=== PATIENT | female | born 2000 | race Caucasian/White ===

== ENCOUNTER 2024-08-16 17:43 | Emergency (ER) | payer MEDICARE, SELFPAY ==
[2024-08-16 18:02] VITALS: BP 111/60
[2024-08-16] MEDS: BENADRYL 25 MG PO (18:39)
[2024-08-16] MEDS: DELTASONE 50 MG PO (18:39)
[2024-08-16] MEDS: ADRENALIN 0.3 MG IM (18:40)
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
[2024-08-16 19:31] VITALS: BP 105/54
== END 2024-08-16 19:33 | disposition home or self-care (01) ==
LOC: EMR 17:43
PROVIDERS: EMERGENCY PHYSICIAN Emergency Medicine
DX: L50.9 Urticaria, unspecified (principal); L29.9 Pruritus, unspecified; E84.9 Cystic fibrosis, unspecified; G89.4 Chronic pain syndrome; F11.90 Opioid use, unspecified, uncomplicated; Z88.1 Allergy status to other antibiotic agents; Z91.040 Latex allergy status; Z88.8 Allergy status to other drugs, medicaments and biological substances; Z91.048 Other nonmedicinal substance allergy status
CPT/HCPCS: 99284; 96372

== ENCOUNTER 2024-11-23 12:31 | Emergency (ER) | payer MEDICARE, SELFPAY ==
[2024-11-23 12:36] VITALS: BP 105/64
--- NOTE | 2024-11-23 13:10 | EDRN ---
Troy Odell PA in room w/ pt.
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
[2024-11-23 13:30] VITALS: BP 114/54
[2024-11-23 14:00] LABS: COVID-19 Antigen Negative (Negative)
[2024-11-23 14:30] LABS: % Basophils 0.4 % (0-2); % Eosinophils 1.9 % (0-6); % Immature Granulocytes 0.2 % (0-0.5); % Lymphocytes 26.2 % (20.5-51.1); % Monocytes 11.7 % (1.7-9.3); % Neutrophils 59.6 % (42.2-75.2); Absolute Eosinophils 0.1 10^3/uL (0-0.7); Absolute Lymphocytes 1.2 10^3/uL (1.2-3.4); Absolute Monocytes 0.6 10^3/uL (0.1-0.6); Absolute Neutrophils 2.8 10^3/uL (1.4-6.5); Hematocrit 35.9 % (37.0-47.0); Hemoglobin 12.5 g/dL (12.0-16.0); Mean Corp Hgb Conc. 34.8 g/dL (33.0-37.0); Mean Corpuscular Hgb 31.2 pg (27.0-31.0); Mean Corpuscular Volume 89.5 fL (81.0-99.0); Mean Platelet Volume 9.4 fL (7.4-10.4); Nucleated Red Blood Cells % 0 %; Platelet Count 198 10^3/uL (130-400); Red Blood Cell Count 4.01 10^6/uL (4.20-5.40); Red Cell Dist. Width 12.2 % (11.5-14.5); White Blood Cell Count 4.7 10^3/uL (4.8-10.8)
[2024-11-23 14:40] LABS: Blood Urea Nitrogen 16 mg/dl (7-17); Calcium 9.6 mg/dl (8.4-10.2); Carbon Dioxide 22 mmol/L (22-30); Chloride 104 mmol/L (98-107); Glucose 103 mg/dl (70-99); Potassium 3.9 mmol/L (3.5-5.1); Sodium 138 mmol/L (135-145); eGFR > 60.00
[2024-11-23 14:53] LABS: HCG, Serum Qualitative Screen Negative
[2024-11-23 15:14] VITALS: BP 111/69
--- NOTE | 2024-11-23 15:43 | EDRN ---
In CT scan R arm IV access infiltrated w/ dye. CT able to get study though pt did have some pain at site. senior radiation protection technician discontinued IV access and warm blanket placed to area at this time.
--- NOTE | 2024-11-23 16:05 | EDRN ---
Troy Odell PA in to see pt.
[2024-11-23 16:10] VITALS: BP 111/66
== END 2024-11-23 16:20 | disposition home or self-care (01) ==
LOC: EMR 12:31
PROVIDERS: Physician Assistant Medical; EMERGENCY PHYSICIAN Student in an Organized Health Care Education/Training Program
DX: R05.9 Cough, unspecified (principal); Z11.52 Encounter for screening for COVID-19
CPT/HCPCS: 99284; 71275; 80048; 84703; 85025; 87502; 87811; Q9967

== ENCOUNTER 2025-03-31 09:32 | Emergency (ER) | payer MEDICARE, SELFPAY ==
[2025-03-31 09:40] VITALS: BP 106/61
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
[2025-03-31 11:46] VITALS: BP 166/54
== END 2025-03-31 11:47 | disposition home or self-care (01) ==
LOC: EMR 09:32
PROVIDERS: EMERGENCY PHYSICIAN Emergency Medicine; FAMILY PHYSICIAN Physician Assistant
DX: O9A.211 Injury, poisoning and certain other consequences of external causes complicating pregnancy, first trimester (principal); O99.281 Endocrine, nutritional and metabolic diseases complicating pregnancy, first trimester; E84.9 Cystic fibrosis, unspecified; K86.81 Exocrine pancreatic insufficiency; O99.351 Diseases of the nervous system complicating pregnancy, first trimester; G89.4 Chronic pain syndrome; W10.9XXA Fall (on) (from) unspecified stairs and steps, initial encounter; Z3A.08 8 weeks gestation of pregnancy
CPT/HCPCS: 99281